=== PATIENT | male | born 1995 | race Caucasian/White ===

== ENCOUNTER 2016-08-17 04:41 | Emergency (ER) | payer SELFPAY ==
[~2016-08-17] VITALS: Ht 185.4 cm; Wt 104.2 kg
[~2016-08-17 04:41] MED LIST: ADVIL,NUPRIN,M200 MG PO; CLONAZEPAM1 MG PO; CONCERTA27 MG PO; LORAZEPAM0.5 MG PO; MOBIC15 MG PO; NAPROSYN500 MG PO; ROBITUSSIN AC,T10 ML PO; TESSALON PERLE100 MG PO; ULTRAM50 MG PO; ZOLOFT50 MG PO
[2016-08-17] MEDS ORDERED: NORCO 5/3251 TABLET PO (05:05)
[2016-08-17] MEDS ORDERED: CLINDAMYCIN HC300 MG PO (05:05)
[2016-08-17 05:28] VITALS: BP 168/117
== END 2016-08-17 05:29 | disposition home or self-care (01) ==
LOC: EME 04:41
DX: K04.7 Periapical abscess without sinus (principal)
CPT/HCPCS: 99281; 99283